=== PATIENT | female | born 1985 | race Two or more races ===

== ENCOUNTER 2021-01-29 07:23 | Emergency (ER) | payer MEDICAID, OTHER ==
[~2021-01-29] VITALS: Ht 157.5 cm; Wt 102.5 kg
[2021-01-29 08:06] VITALS: BP 129/81
== END 2021-01-29 09:47 | disposition home or self-care (01) ==
LOC: ER 07:23
DX: M54.50 Low back pain, unspecified (principal); K59.00 Constipation, unspecified